=== PATIENT | female | born 1990 | race Caucasian/White ===

== ENCOUNTER 2020-10-08 19:13 | Emergency (ER) | payer OTHER ==
[2020-10-08 19:23] VITALS: RESP 18; TEMP 98.8
[2020-10-08] MEDS ORDERED: KETOROLAC 15 MG/ML 1 ML VIAL IVP STA (19:35)
[2020-10-08] MEDS ORDERED: SODIUM CHLORIDE 0.9% 1,000 ML IV STA (19:35)
[2020-10-08] MEDS ORDERED: diphenhydrAMINE 50 MG/ML 1 ML VIAL IVP STA (19:35)
[2020-10-08] MEDS ORDERED: methylPREDNISolone SOD SUCCI 125 MG/2 ML VIAL IV STA (19:36)
--- NOTE | 2020-10-08 19:43 | ED ---
General Adult HPI - General Source: patient, EMS, RN notes reviewed, old records reviewed Mode of arrival: EMS Limitations: no limitations - History of Present Illness -: days(s) (1, started 4 AM) Location: head Radiation: non-radiation Severity scale (1-10): 7 Quality: aching, sharp, other (throbbing) Consistency: constant Improves with: none Worsens with: none Associated Symptoms: other (twitching lips and tongue; seizure aura) Treatments Prior to Arrival: none <Zaire Armstrong - Last Filed: 10/08/20 21:01> <Bee Gillespie - Last Filed: 10/09/20 23:17> - General Chief complaint: Seizure Stated complaint: seizure - History of Present Illness Initial comments: 30-year-old white female, alert and oriented 4, presents to the emergency room with complaints of feeling an aura with impending seizure. Patient states that her last seizure was 3 months ago and she is currently taking Lamictal. She states she has not missed any doses but normally she'll feel bubbly in her forehead and some facial twitching before she has a seizure. Her neurologist is Dr Hand but her primary care doctor is prescribing her Lamictal but doesn't remember his name. She is currently at [place] [facility] voluntarily for alcohol abuse. She states that she was drinking heavily for 3 years Until her and her significant other decided to check in the [place] together. She currently complains of a frontal headache. She has no focal neurological deficits. She does have occasional stuttering. (Zaire Armstrong) - Related Data Home Medications Medication Instructions Recorded Confirmed Multivitamins, Thera [Multivitamin 1 tab PO DAILY@0610/08/20 10/08/20 (formulary)] Thiamine [Vitamin B-1] 100 mg PO DAILY@0630 10/08/20 10/08/20 busPIRone HCl [Buspar] 10 mg PO TID PRN 10/08/20 10/08/20 diazePAM [Diastat] 10 mg RECTAL ONCE PRN 10/08/20 10/08/20 lamoTRIgine [LaMICtal] 300 mg PO BID@1200,2200 10/08/20 10/08/20 Allergies Allergy/AdvReac Type Severity Reaction Status Date / Time nickel Allergy Unknown Verified 10/08/20 20:54 Sulfa (Sulfonamide Allergy Rash/Hives Verified 10/08/20 20:54 Antibiotics) tioconazole Allergy Rash/Hives Verified 10/08/20 20:54 [From Monistat 1 (tioconazole)] divalproex sodium AdvReac Hallucinati Verified 10/08/20 20:54 [From Depakote] ons Review of Systems ROS Other: All systems not noted in ROS Statement are negative. <Zaire Armstrong - Last Filed: 10/08/20 21:01> ROS Other: All systems not noted in ROS Statement are negative. <Bee Gillespie - Last Filed: 10/09/20 23:17> ROS Statement: Those systems with pertinent positive or pertinent negative responses have been documented in the HPI. Past Medical History Past Medical History: Seizure Disorder Additional Past Surgical History / Comment(s): Cystectomy tailbone 2014. Past Psychological History: Anxiety, Bipolar, Depression Smoking Status: Current every day smoker Past Alcohol Use History: Abuse Past Drug Use History: IV Drug Use <Zaire Armstrong - Last Filed: 10/08/20 21:01> General Exam Limitations: no limitations General appearance: alert, in no apparent distress Head exam: Present: atraumatic, normocephalic, normal inspection Eye exam: Present: normal appearance, PERRL, EOMI. Absent: scleral icterus, conjunctival injection, periorbital swelling Pupils: Present: normal accommodation ENT exam: Present: normal exam, normal oropharynx, mucous membranes moist Neck exam: Present: normal inspection, full ROM. Absent: tenderness, meningismus, lymphadenopathy, thyromegaly Respiratory exam: Present: normal lung sounds bilaterally. Absent: respiratory distress, wheezes, rales, rhonchi, stridor, chest wall tenderness, accessory muscle use, decreased breath sounds, prolonged expiratory Cardiovascular Exam: Present: regular rate, normal rhythm, normal heart sounds. Absent: systolic murmur, diastolic murmur, rubs, gallop, clicks GI/Abdominal exam: Present: soft, normal bowel sounds. Absent: distended, tenderness, guarding, rebound, rigid Extremities exam: Present: normal inspection, full ROM, normal capillary refill. Absent: tenderness, pedal edema, joint swelling, calf tenderness Back exam: Present: normal inspection, full ROM. Absent: tenderness, CVA tenderness (R), CVA tenderness (L), muscle spasm, paraspinal tenderness, vertebral tenderness, rash noted Neurological exam: Present: alert, oriented X3, CN II-XII intact Expanded Patient oriented to: Present: person, place, time Speech: Present: fluid speech Cranial nerves: EOM's Intact: Normal, Gag Reflex: Normal, Tongue Deviation: Normal, Facial Sensation: Normal Cerebellar function: Finger to Nose: Normal, Heel to [place]: Normal Motor strength exam: RUE: 5, LUE: 5, RLE: 5, LLE: 5 Eye Response: (4) open spontaneously Motor Response: (6) obeys commands Verbal Response: (5) oriented [place] Total: 15 Psychiatric exam: Present: normal affect, normal mood, anxious Skin exam: Present: warm, dry, intact, normal color. Absent: rash, cyanosis, diaphoretic, erythema, petechiae, pallor, mottled <Zaire Armstrong - Last Filed: 10/08/20 21:01> Course Vital Signs 10/08/20 10/08/20 19:19 23:33 Temperature 98.8 F Pulse Rate 72 60 Respiratory 18 18 Rate Blood Pressure 123/61 118/76 O2 Sat by Pulse 99 99 Oximetry Medical Decision Making - Lab Data Result diagrams: 10/08/20 19:54 10/08/20 19:54 <Zaire Armstrong - Last Filed: 10/08/20 21:01> - Lab Data Result diagrams: 10/08/20 19:54 10/08/20 19:54 <Bee Gillespie - Last Filed: 10/09/20 23:17> - Medical Decision Making Patient is awake and alert and nontoxic appearing, vital signs are within normal limits. Speech is clear. Patient is afebrile with no signs of meningitis. She has history of migraine headaches and states that this is similar to her previous headaches. She denies any head injury or trauma. CBC within normal limits, electrolytes are remarkable UA is negative for or signs of in fection. Patient was given 1 L normal saline bolus, Benadryl, Toradol and Solu- Medrol. Patient states headache is better but states usually has relief with Excedrin with caffeine. Patient was given a dose of Excedrin prior to discharge. Patient agreeable to being discharged home and following up with her primary care doctor. She'll be directed to continue her Lamictal return if worsening symptoms. Patient states that she does have a rectal suppository for seizures that last over 2 minutes. Case discussed with Dr. Gillespie. (Zaire Armstrong) I was available for consultation in the emergency department. The history and physical exam were done by the midlevel provider. I was consulted for this patients care. I reviewed the case with the midlevel provider and based on their presentation of the patient, I agree with the assessment, medical decision making and plan of care as documented. Chart was dictated using [employer] dictation software. Attempts were made to cor rect any dictation errors however some typographical errors may persist. (Bee Gillespie) - Lab Data Lab Results 10/08/20 10/08/20 10/08/20 Range/Units 19:54 19:54 19:54 WBC 7.2 (3.8-10.6) k/uL RBC 3.97 (3.80-5.40) m/uL Hgb 12.6 (11.4-16.0) gm/dL Hct 37.2 (34.0-46.0) % MCV 93.8 (80.0-100.0) fL MCH 31.8 (25.0-35.0) pg MCHC 33.9 (31.0-37.0) g/dL RDW 12.2 (11.5-15.5) % Plt Count 223 (150-450) k/uL MPV 7.8 Neutrophils % 58 % Lymphocytes % 27 % Monocytes % 9 % Eosinophils % 4 % Basophils % 1 % Neutrophils # 4.2 (1.3-7.7) k/uL Lymphocytes # 2.0 (1.0-4.8) k/uL Monocytes # 0.6 (0-1.0) k/uL Eosinophils # 0.3 (0-0.7) k/uL Basophils # 0.1 (0-0.2) k/uL Sodium (137-145) mmol/L Potassium (3.5-5.1) mmol/L Chloride (98-107) mmol/L Carbon Dioxide (22-30) mmol/L Anion Gap mmol/L BUN (7-17) mg/dL Creatinine (0.52-1.04) mg/dL Est GFR (CKD-EPI)AfAm (>60 ml/min/1.73 sqM) Est GFR (CKD-EPI)NonAf (>60 ml/min/1.73 sqM) Glucose (74-99) mg/dL Calcium (8.4-10.2) mg/dL Magnesium (1.6-2.3) mg/dL Total Bilirubin (0.2-1.3) mg/dL AST (14-36) U/L ALT (4-34) U/L Alkaline Phosphatase (38-126) U/L Total Protein (6.3-8.2) g/dL Albumin (3.5-5.0) g/dL Urine Color Light Yellow Urine Appearance Clear (Clear) Urine pH 7.5 (5.0-8.0) Ur Specific [place] 1.004 (1.001-1.035) Urine Protein Negative (Negative) Urine Glucose (UA) Negative (Negative) Urine Ketones Negative (Negative) Urine Blood Negative (Negative) Urine Nitrite Negative (Negative) Urine Bilirubin Negative (Negative) Urine Urobilinogen <2.0 (<2.0) mg/dL Ur Leukocyte Esterase Negative (Negative) Urine HCG, Qual Not Detected (Not Detectd) 10/08/20 Range/Units 19:54 WBC (3.8-10.6) k/uL RBC (3.80-5.40) m/uL Hgb (11.4-16.0) gm/dL Hct (34.0-46.0) % MCV (80.0-100.0) fL MCH (25.0-35.0) pg MCHC (31.0-37.0) g/dL RDW (11.5-15.5) % Plt Count (150-450) k/uL MPV Neutrophils % % Lymphocytes % % Monocytes % % Eosinophils % % Basophils % % Neutrophils # (1.3-7.7) k/uL Lymphocytes # (1.0-4.8) k/uL Monocytes # (0-1.0) k/uL Eosinophils # (0-0.7) k/uL Basophils # (0-0.2) k/uL Sodium 141 (137-145) mmol/L Potassium 4.1 (3.5-5.1) mmol/L Chloride 105 (98-107) mmol/L Carbon Dioxide 28 (22-30) mmol/L Anion Gap 8 mmol/L BUN 11 (7-17) mg/dL Creatinine 0.86 (0.52-1.04) mg/dL Est GFR (CKD-EPI)AfAm >90 (>60 ml/min/1.73 sqM) Est GFR (CKD-EPI)NonAf >90 (>60 ml/min/1.73 sqM) Glucose 85 (74-99) mg/dL Calcium 10.4 H (8.4-10.2) mg/dL Magnesium 2.3 (1.6-2.3) mg/dL Total Bilirubin 0.2 (0.2-1.3) mg/dL AST 34 (14-36) U/L ALT 36 H (4-34) U/L Alkaline Phosphatase 71 (38-126) U/L Total Protein 7.3 (6.3-8.2) g/dL Albumin 4.6 (3.5-5.0) g/dL Urine Color Urine Appearance (Clear) Urine pH (5.0-8.0) Ur Specific [place] (1.001-1.035) Urine Protein (Negative) Urine Glucose (UA) (Negative) Urine Ketones (Negative) Urine Blood (Negative) Urine Nitrite (Negative) Urine Bilirubin (Negative) Urine Urobilinogen (<2.0) mg/dL Ur Leukocyte Esterase (Negative) Urine HCG, Qual (Not Detectd) Disposition Is patient prescribed a controlled substance at d/c from ED?: No Time of Disposition: 21:07 <Zaire Armstrong - Last Filed: 10/08/20 21:01> <Bee Gillespie - Last Filed: 10/09/20 23:17> Clinical Impression: Headache Disposition: HOME SELF-CARE Condition: Fair Instructions (If sedation given, give patient instructions): Acute Headache (ED) Additional Instructions: Continue your home medications, increase your fluid intake, return to the emergency room with worsening headache. Follow-up with your primary care doctor regarding continuation of care for seizures. Referrals: None,Stated [REFERRING] - 1-2 days
[2020-10-08 20:21] LABS: Basophils # (A) 0.1 k/uL (0-0.2); Basophils % (A) 1 %; Eosinophils # (A) 0.3 k/uL (0-0.7); Eosinophils % (A) 4 %; HCT 37.2 % (34.0-46.0); HGB 12.6 gm/dL (11.4-16.0); Lymphocytes % (A) 27 %; MCH 31.8 pg (25.0-35.0); MCHC 33.9 g/dL (31.0-37.0); MCV 93.8 fL (80.0-100.0); Mean Platelet Volume 7.8; Monocytes # (A) 0.6 k/uL (0-1.0); Monocytes % (A) 9 %; Neutrophils # (A) 4.2 k/uL (1.3-7.7); Neutrophils % (A) 58 %; Platelet Count 223 k/uL (150-450); RBC 3.97 m/uL (3.80-5.40); RDW 12.2 % (11.5-15.5); WBC 7.2 k/uL (3.8-10.6)
[2020-10-08 20:27] LABS: Appearance,Urine Clear (Clear); Bilirubin,Urine Negative (Negative); Blood,Urine Negative (Negative); Color,Urine Light Yellow; Glucose,Urine (UA) Negative (Negative); Ketones,Urine Negative (Negative); Leukocyte Esterase,Urine Negative (Negative); Nitrite,Urine Negative (Negative); PH, Urine 7.5 (5.0-8.0); Protein,Urine Negative (Negative); Specific Gravity,Urine 1.004 (1.001-1.035); Urobilinogen,Urine <2.0 mg/dL (<2.0)
[2020-10-08 20:33] LABS: ALT 36 U/L (4-34); AST 34 U/L (14-36); African American GFR (CKD) >90 (>60 ml/min/1.73 sqM); Albumin 4.6 g/dL (3.5-5.0); Alkaline Phosphatase 71 U/L (38-126); Anion Gap 8 mmol/L; Blood Urea Nitrogen 11 mg/dL (7-17); Calcium 10.4 mg/dL (8.4-10.2); Carbon Dioxide 28 mmol/L (22-30); Chloride 105 mmol/L (98-107); Glucose 85 mg/dL (74-99); Magnesium 2.3 mg/dL (1.6-2.3); Non-African American GFR(CKD) >90 (>60 ml/min/1.73 sqM); Potassium 4.1 mmol/L (3.5-5.1); Sodium 141 mmol/L (137-145); Total Bilirubin 0.2 mg/dL (0.2-1.3); Total Protein 7.3 g/dL (6.3-8.2)
[2020-10-08] MEDS ORDERED: ASPIRIN-ACET-CAFF 250-250-65MG 1 EACH TAB PO STA (20:56)
[2020-10-08 23:35] VITALS: BP 118/76; PULSE 60
== END 2020-10-08 23:38 | disposition home or self-care (01) ==
LOC: EC 19:13
DX: R51.9 Headache, unspecified (principal); G40.909 Epilepsy, unspecified, not intractable, without status epilepticus; F17.200 Nicotine dependence, unspecified, uncomplicated; Z88.2 Allergy status to sulfonamides; Z88.8 Allergy status to other drugs, medicaments and biological substances; Z91.048 Other nonmedicinal substance allergy status
CPT/HCPCS: 36415; 80053; 83735; 85025; 81003; 81025; 99284; 96374; 96375; 96361; J1200; J2930; J1885